=== PATIENT | male | born 1990 | race Caucasian/White ===

== ENCOUNTER 2017-05-23 02:23 | Emergency (ER) | payer MEDICAID ==
[~2017-05-23] VITALS: Ht 172.7 cm; Wt 69.1 kg
[2017-05-23 02:39] VITALS: BP 132/85
[2017-05-23] MEDS ORDERED: GABA100C PO (02:46)
[2017-05-23] MEDS ORDERED: METH500T97 PO (02:46)
== END 2017-05-23 03:12 | disposition home or self-care (01) ==
LOC: ED 03:06
DX: F15.122 Other stimulant abuse with intoxication with perceptual disturbance (principal)
CPT/HCPCS: 99281; 99283

== ENCOUNTER 2017-05-23 13:23 | Emergency (ER) | payer MEDICAID ==
[~2017-05-23] VITALS: Ht 172.7 cm; Wt 68.4 kg
[~2017-05-23 13:23] MED LIST: GABA100C PO; METH500T97 PO
[2017-05-23 14:43] LABS: BLOOD UREA NITROGEN 24 mg/dL (7-18)
[2017-05-23 15:31] VITALS: BP 119/78
== END 2017-05-23 15:33 | disposition home or self-care (01) ==
LOC: ED 14:01
DX: F15.20 Other stimulant dependence, uncomplicated (principal)
CPT/HCPCS: 36415; 80048; 85025; 99284